=== PATIENT | male | born 1975 | race Caucasian/White ===

== ENCOUNTER → 2016-07-08 | Outpatient (CLI) | payer SELFPAY ==
--- NOTE | 2016-07-08 12:10 | REP ---
Left ankle four views: Mineralization and joint spaces are unremarkable. There is no fracture or dislocation. There is soft tissue edema. Signed by Tristan Tinsley MD 07/08/2016 12:01 P
== END ==
LOC: M WUC 11:30
PROVIDERS: ATTEND Physician Assistant
DX: S93.422A Sprain of deltoid ligament of left ankle, initial encounter (principal); R60.0 Localized edema; X58.XXXA Exposure to other specified factors, initial encounter; Y92.89 Other specified places as the place of occurrence of the external cause; Y93.89 Activity, other specified; Y99.8 Other external cause status

== ENCOUNTER 2016-08-06 19:19 | Emergency (ER) | payer SELFPAY ==
[~2016-08-06] VITALS: Ht 175.3 cm; Wt 117.9 kg
[2016-08-06] MEDS ORDERED: HYDR-3716 PO (19:31)
[2016-08-06] MEDS ORDERED: OLANZapine 5 MG TAB PO ONE (21:15)
[2016-08-06 21:18] VITALS: BP 176/92
== END 2016-08-06 21:20 | disposition home or self-care (01) ==
LOC: M ED 19:19
DX: F43.22 Adjustment disorder with anxiety (principal); R45.4 Irritability and anger; G89.29 Other chronic pain

== ENCOUNTER → 2021-03-23 | Outpatient (CLI) | payer OTHER, SELFPAY ==
[~2021-03-23] MED LIST: HYDR-3716 PO
== END ==
LOC: M SOG 09:25
PROVIDERS: ATTEND Orthopaedic Surgery Hand Surgery
DX: G56.03 Carpal tunnel syndrome, bilateral upper limbs (principal)

== ENCOUNTER → 2021-04-08 | Outpatient (CLI) | payer OTHER ==
[~2021-04-08] MED LIST changes: +HYDR-4517 PO
== END ==
LOC: M LABSMTC 09:35
PROVIDERS: ATTEND Anesthesiology
DX: Z01.812 Encounter for preprocedural laboratory examination (principal); Z20.822 Contact with and (suspected) exposure to COVID-19

== ENCOUNTER → 2021-04-22 | Outpatient (CLI) | payer OTHER ==
[~2021-04-22] MED LIST changes: +HYDR-3490 PO; +HYDR50TA70 PO; +LISI10TA22 PO; +METO50TA7 PO
== END ==
LOC: M LABSMTC 12:09
PROVIDERS: ATTEND Anesthesiology
DX: Z01.812 Encounter for preprocedural laboratory examination (principal); Z20.822 Contact with and (suspected) exposure to COVID-19

== ENCOUNTER 2021-04-27 08:50 | Day surgery (SDC) | payer OTHER ==
[~2021-04-27] VITALS: Ht 175.3 cm; Wt 137.4 kg
[~2021-04-27 08:50] MED LIST changes: +LIDOCAINE 1% MDV 20ML VIAL SQ PRN; +LR 1,000 ML IV ONE
[2021-04-27] MEDS ORDERED: BUPIVACAINE HCL 0.25% 30ML VIAL As Ordered ONE (13:08)
[2021-04-27] MEDS ORDERED: dexameTHASONE 4 MG/ML 1ML VIAL (J1100 PER 1MG) As Ordered ONE (13:12)
[2021-04-27] MEDS ORDERED: ONDANSETRON 4MG/2ML VIAL As Ordered ONE (13:12)
[2021-04-27] MEDS ORDERED: KETOROLAC 60MG 2ML VIAL As Ordered ONE (13:12)
[2021-04-27] MEDS ORDERED: fentaNYL 100 MCG/2 ML INJECTION As Ordered ONE (13:12)
[2021-04-27] MEDS ORDERED: MIDAZOLAM INJ 2MG/2ML VIAL (J2250 PER 1MG) As Ordered ONE (13:12)
[2021-04-27] MEDS ORDERED: LIDOCAINE 2% 100MG/5ML SDV (FOR ANES.) As Ordered ONE (13:12)
[2021-04-27] MEDS ORDERED: METOCLOPRAMIDE INJ 10MG/2ML VIAL (J2765 PER 1) As Ordered ONE (13:12)
[2021-04-27] MEDS ORDERED: propofoL 200 MG/20 ML VIAL As Ordered ONE (13:12)
[2021-04-27] MEDS ORDERED: LR 1,000 ML IV SCH (14:45)
[2021-04-27] MEDS ORDERED: PERCOCET 5MG/325MG TAB PO PRN (14:45)
[2021-04-27] MEDS ORDERED: METOCLOPRAMIDE INJ 10MG/2ML VIAL (J2765 PER 1) IV PRN (14:45)
[2021-04-27] MEDS ORDERED: fentaNYL 100 MCG/2 ML INJECTION IV PRN (14:45)
[2021-04-27] MEDS ORDERED: ONDANSETRON 4MG/2ML VIAL IV PRN (14:45)
[2021-04-27] MEDS ORDERED: TRAM50TA2 PO (14:58)
[2021-04-27 15:45] VITALS: BP 133/76
== END 2021-04-27 15:55 | disposition home or self-care (01) ==
LOC: M SDC 08:50
PROVIDERS: ATTEND Orthopaedic Surgery Hand Surgery
DX: G56.01 Carpal tunnel syndrome, right upper limb (principal); I10 Essential (primary) hypertension; R12 Heartburn; R06.83 Snoring; Z79.899 Other long term (current) drug therapy
CPT/HCPCS: 29848; J1100; J1885; J2250; J2405; J2765; J3010

== ENCOUNTER → 2021-05-04 | Outpatient (CLI) | payer OTHER ==
[~2021-05-04] MED LIST changes: -LIDOCAINE 1% MDV 20ML VIAL SQ PRN; -LR 1,000 ML IV ONE; +TRAM50TA2 PO
== END ==
LOC: M LABSMTC 10:59
PROVIDERS: ATTEND Anesthesiology
DX: Z01.818 Encounter for other preprocedural examination (principal); Z11.52 Encounter for screening for COVID-19

== ENCOUNTER 2024-10-19 12:32 | Observation (INO) | payer OTHER ==
[~2024-10-19] VITALS: Ht 175.3 cm; Wt 132.5 kg
[2024-10-19 13:09] LABS: VENOUS BASE EXCESS -0.7 (-2.0-2.0); VENOUS HCO3 22.5 MMOL/L (23.0-27.0); VENOUS O2 SATURATION 94.3 % (60.0-80.0); VENOUS PARTIAL PRESSURE CO2 33.8 mmHg (38.0-50.0); VENOUS PARTIAL PRESSURE O2 71.4 mmHg (30.0-50.0); VENOUS PH 7.442 UNITS (7.330-7.430); VENOUS STANDARD HCO3 23.8 MMOL/L; VENOUS TOTAL CO2 23.6 MMOL/L (24.0-28.0)
[2024-10-19 13:16] LABS: BASO # 0.0 10^3/uL (0.0-0.2); BASO % 0.2 % (0.0-1.0); EOS # 0.1 10^3/uL (0.0-0.5); EOS % 0.5 % (0.0-3.0); LYMPH # 2.9 10^3/uL (1.5-5.0); LYMPH % 22.1 % (24.0-44.0); MONO # 0.9 10^3/uL (0.0-0.8); MONO % 6.5 % (2.0-8.0); NEUTROPHILS # 9.3 10^3/uL (1.5-8.5); NEUTROPHILS % 70.3 % (36.0-66.0); PLATELET COUNT, AUTOMATED 281 10^3/uL (150-450)
[2024-10-19 13:36] LABS: OSMOLALITY SERUM 320.0 MOSM/KG (275-295)
[2024-10-19 13:43] LABS: ACETONE/KETONE 1.04 MMOL/L (0.02-0.27)
[2024-10-19 13:46] LABS: ALT/SGPT 116.0 U/L (7.0-40); AST/SGOT 82.0 U/L (<34); CALCIUM LEVEL 10.1 MG/DL (8.5-10.1); CARBON DIOXIDE LEVEL 23.0 MMOL/L (20-31); CHLORIDE LEVEL 92.0 MMOL/L (98-107); CREATININE FOR GFR 1.22 MG/DL (0.70-1.30); GLOMERULAR FILTRATION RATE 73.6 (>60); POTASSIUM SERUM 5.6 MMOL/L (3.5-5.1); SODIUM LEVEL 131.0 MMOL/L (136-145)
[2024-10-19] MEDS: NS (Normal Saline) 0.9% 1,000 ML IV ONE (13:46)
[2024-10-19] MEDS: HumuLIN R (REGULAR) INSULIN (NovoLIN R) **100 U/ML** PER UNIT IV ONE ×2 (13:46→16:19)
[2024-10-19 13:51] LABS: KETONE, URINE AUTO RFX TRACE mg/dL (NEGATIVE); LEUKOCYTE ESTERASE UR AUTO RFX NEGATIVE (NEGATIVE); NITRITE, URINE AUTO RFX NEGATIVE (NEGATIVE); RBC, URINE AUTO RFX 0 /HPF (0-3); SQUAM EPITHELIAL CELL UR AURFX 0 /HPF (0-6); WBC, URINE AUTO RFX 1 /HPF (0-3)
[2024-10-19] MEDS ORDERED: SEMA0.257 SQ (15:59)
[2024-10-19] MEDS ORDERED: METF500T13 PO (15:59)
[2024-10-19] MEDS ORDERED: OXYC1TAB23 PO (15:59)
[2024-10-19] MEDS ORDERED: LISI40TA10 PO (15:59)
[2024-10-19] MEDS ORDERED: HOME MED LIST COMPLETE! XX SCH (16:00)
[2024-10-19] MEDS: LanTUS (INSULIN GLARGINE INJ) 1 UNITS/0.01 ML SC SCH (16:19)
[2024-10-19] MEDS: NS (Normal Saline) 0.9% 1,000 ML IV SCH (16:23)
[2024-10-19] MEDS ORDERED: GLUCAGON INJ 1 MG VIAL SC PRN (16:30)
[2024-10-19] MEDS ORDERED: GLUCOSE 4 GM CHEW PO PRN (16:30)
[2024-10-19] MEDS ORDERED: DEXTROSE 50% 50 ML SYRINGE IV PRN (16:30)
[2024-10-19 17:08] VITALS: BP 127/71; TEMP 98.1; O2SAT 93
[2024-10-19] MEDS: INSULIN LISPRO (NovoLOG) PER UNIT SC SCH ×3 (18:22→20:28)
[2024-10-19 20:19] VITALS: BP 116/68; TEMP 97.4; O2SAT 97
[2024-10-20 05:46] VITALS: BP 123/77; TEMP 97.5; O2SAT 98
[2024-10-20 07:47] LABS: ACETONE/KETONE 0.86 MMOL/L (0.02-0.27)
[2024-10-20 08:01] LABS: OSMOLALITY SERUM 303.0 MOSM/KG (275-295)
[2024-10-20 08:12] LABS: CALCIUM LEVEL 8.5 MG/DL (8.5-10.1); CARBON DIOXIDE LEVEL 25.0 MMOL/L (20-31); CHLORIDE LEVEL 98.0 MMOL/L (98-107); CREATININE FOR GFR 1.2 MG/DL (0.70-1.30); GLOMERULAR FILTRATION RATE 75.1 (>60); MAGNESIUM LEVEL 1.8 MG/DL (1.8-2.4); PHOSPHORUS LEVEL 2.5 MG/DL (2.5-4.9); POTASSIUM SERUM 4.3 MMOL/L (3.5-5.1); SODIUM LEVEL 135.0 MMOL/L (136-145)
[2024-10-20] MEDS: LanTUS (INSULIN GLARGINE INJ) 1 UNITS/0.01 ML SC SCH (08:37)
[2024-10-20 12:02] VITALS: BP 131/82; TEMP 98.4; O2SAT 98
[2024-10-20] MEDS: INSULIN LISPRO (NovoLOG) PER UNIT SC SCH (17:17)
[2024-10-20 20:00] VITALS: BP 140/96; TEMP 97.6; O2SAT 97
[2024-10-21 03:30] VITALS: BP 138/86; TEMP 97.6; O2SAT 98
[2024-10-21] MEDS: LanTUS (INSULIN GLARGINE INJ) 1 UNITS/0.01 ML SC SCH (08:45)
[2024-10-21] MEDS: metFORMIN 500 MG TAB PO SCH (08:45)
[2024-10-21 08:58] LABS: ALT/SGPT 125 U/L (7.0-40); AST/SGOT 145 U/L (<34); CALCIUM LEVEL 7.8 MG/DL (8.5-10.1); CARBON DIOXIDE LEVEL 23 MMOL/L (20-31); CHLORIDE LEVEL 106 MMOL/L (98-107); CREATININE FOR GFR 1.00 MG/DL (0.70-1.30); GLOMERULAR FILTRATION RATE > 90.0 (>60); POTASSIUM SERUM 4.1 MMOL/L (3.5-5.1); SODIUM LEVEL 140 MMOL/L (136-145)
[2024-10-21] MEDS: **UNRESOLVED NON-FORMULARY MED ORDER XX SCH (09:00)
[2024-10-21 09:29] LABS: PLATELET COUNT, AUTOMATED 184 10^3/uL (150-450)
[2024-10-21 11:07] LABS: C-PEPTIDE 3.17 ng/mL (0.80-3.85)
[2024-10-21 11:43] VITALS: BP 150/101; TEMP 97.3; O2SAT 97
[2024-10-21] MEDS: INSULIN LISPRO (NovoLOG) PER UNIT SC SCH ×3 (12:00→20:30)
[2024-10-21 13:30] VITALS: BP 143/80; TEMP 97.6; O2SAT 95
[2024-10-21 14:00] VITALS: BP 134/85; TEMP 97.6; O2SAT 91
[2024-10-21 14:26] VITALS: BP 140/84; TEMP 97; O2SAT 96
[2024-10-21 19:47] VITALS: BP 142/98; TEMP 97.6; O2SAT 98
[2024-10-22 04:09] VITALS: BP 141/95; TEMP 98; O2SAT 96
[2024-10-22 06:34] LABS: PLATELET COUNT, AUTOMATED 162 10^3/uL (150-450)
[2024-10-22 07:06] LABS: ALT/SGPT 158 U/L (7.0-40); AST/SGOT 159 U/L (<34); CALCIUM LEVEL 8.8 MG/DL (8.5-10.1); CARBON DIOXIDE LEVEL 22 MMOL/L (20-31); CHLORIDE LEVEL 104 MMOL/L (98-107); CREATININE FOR GFR 0.95 MG/DL (0.70-1.30); GLOMERULAR FILTRATION RATE > 90.0 (>60); POTASSIUM SERUM 4.1 MMOL/L (3.5-5.1); SODIUM LEVEL 136 MMOL/L (136-145)
[2024-10-22] MEDS: ENOXAPARIN 40 MG/0.4 ML SYRINGE (J1650 PER 10MG) SC SCH (07:48)
[2024-10-22] MEDS: LanTUS (INSULIN GLARGINE INJ) 1 UNITS/0.01 ML SC SCH (07:48)
[2024-10-22] MEDS ORDERED: LANTINJ4 SC (11:46)
[2024-10-22] MEDS ORDERED: ALCOPAD25 TOP (11:46)
[2024-10-22] MEDS ORDERED: PEN-308 SC (11:46)
[2024-10-22] MEDS ORDERED: METF500T13 PO (11:46)
[2024-10-22] MEDS ORDERED: NOVOINJ3 SC (11:46)
[2024-10-22 12:04] VITALS: BP 159/95; TEMP 97.7; O2SAT 97
[2024-10-23] MEDS ORDERED: OZEMPIC 0.25 MG SC SCH (09:00)
[2024-10-24 21:42] LABS: GAD-65 AUTOANTIBODY < 5 IU/mL (<5)
== END 2024-10-22 13:40 | disposition home or self-care (01) ==
LOC: M ED 12:32 → M ED INP 12:33 → M MS4PR 17:06
PROVIDERS: ADMIT Student in an Organized Health Care Education/Training Program; ATTEND Internal Medicine
DX: E11.00 Type 2 diabetes mellitus with hyperosmolarity without nonketotic hyperglycemic-hyperosmolar coma (NKHHC) (principal); E11.65 Type 2 diabetes mellitus with hyperglycemia; K76.0 Fatty (change of) liver, not elsewhere classified; R79.89 Other specified abnormal findings of blood chemistry; E87.1 Hypo-osmolality and hyponatremia; E66.813 Obesity, class 3; Z68.41 Body mass index [BMI] 40.0-44.9, adult; Z83.3 Family history of diabetes mellitus; Z79.899 Other long term (current) drug therapy; Z79.84 Long term (current) use of oral hypoglycemic drugs; Z79.85 Long-term (current) use of injectable non-insulin antidiabetic drugs; Z88.8 Allergy status to other drugs, medicaments and biological substances
CPT/HCPCS: 36415; 76705; 80048; 80053; 80076; 81001; 82010; 82803; 83036; 83735; 83930; 84100; 84132; 84681; 85025; 85027; 86341; 93005; 93041; 94760; 96361; 96374; 96376; 99285; G0378; J1815